=== PATIENT | female | born 1940 | race Caucasian/White ===

== ENCOUNTER 2018-03-20 20:10 | Emergency (ER) | payer MEDICARE, BC ==
[~2018-03-20] VITALS: Ht 162.6 cm; Wt 57.6 kg
[~2018-03-20 20:10] MED LIST: ASPI81EC PO; DOXY100 PO; FISH1000 PO
[2018-03-20] MEDS ORDERED: ATOR40TA PO (20:17)
[2018-03-20 21:27] LABS: BASOPHILS ABSOLUTE AUTO 0.03 K/mm3 (0.00-0.23); BASOPHILS PERCENT AUTO 0 % (0-2); EOSINOPHILS ABSOLUTE AUTO 0.12 K/mm3 (0.00-0.68); EOSINOPHILS PERCENT AUTO 1 % (0-6); Hematocrit 39.5 % (33.0-51.0); Hemoglobin 13.2 g/dL (11.5-16.0); IMMATURE GRAN ABSOLUTE AUTO 0.02 K/mm3 (0.00-0.10); IMMATURE GRAN PERCENT AUTO 0 % (0-1); LYMPHOCYTES ABSOLUTE AUTO 0.94 K/mm3 (0.84-5.20); LYMPHOCYTES PERCENT AUTO 11 % (21-46); MONOCYTES ABSOLUTE AUTO 0.69 K/mm3 (0.16-1.47); MONOCYTES PERCENT AUTO 8 % (4-13); Mean Corpuscular HGB 31.4 pg (26.0-34.0); Mean Corpuscular HGB Conc 33.4 g/dL (31.5-36.5); Mean Corpuscular Volume 94 fL (80-100); Mean Platelet Volume 10.4 fL (9.1-12.4); NEUTROPHILS ABSOLUTE AUTO 6.89 K/mm3 (1.96-9.15); NEUTROPHILS PERCENT AUTO 79 % (41-73); Platelet Count 187 K/mm3 (150-400); RDW Standard Deviation 41.5 fL (35.1-46.3); Red Blood Cell Count 4.21 M/mm3 (3.80-5.20); White Blood Cell Count 8.69 K/mm3 (4.00-11.30)
[2018-03-20 21:42] LABS: Anion Gap 6 mmol/L (6-16); Blood Urea Nitrogen 13 mg/dL (8-24); Bun/Creatinine Ratio 16.4 (12.0-20.0); CO2, Blood 26 mmol/L (21-32); Calcium, Blood 8.8 mg/dL (8.5-10.1); Chloride, Blood 104 mmol/L (98-108); Creatinine, Blood 0.79 mg/dL (0.40-1.00); Glomerular Filtration Rate >60 (60-); Glucose, Blood 110 mg/dL (70-99); Potassium, Blood 3.8 mmol/L (3.5-5.5); Sodium, Blood 136 mmol/L (136-145)
[2018-03-20 21:58] LABS: Influenza A Negative (NEGATIVE); Influenza B Negative (NEGATIVE)
[2018-03-20] MEDS ORDERED: Zithromax250 MG PO (22:37)
[2018-03-20] MEDS ORDERED: Mucinex600 MG PO (22:38)
== END 2018-03-20 22:49 | disposition home or self-care (01) ==
LOC: ER 20:10
PROVIDERS: Emergency Medicine
DX: J40 Bronchitis, not specified as acute or chronic (principal); F17.210 Nicotine dependence, cigarettes, uncomplicated
CPT/HCPCS: 36415; 71046; 80048; 85025; 87804; 99284-25

== ENCOUNTER → 2020-03-11 | Outpatient (CLI) | payer MEDICARE, BC ==
[~2020-03-11] MED LIST changes: +ATOR40TA PO; +Mucinex600 MG PO; +Zithromax250 MG PO
== END | disposition home or self-care (01) ==
LOC: LAB 08:11
DX: R10.32 Left lower quadrant pain (principal)
CPT/HCPCS: 87086

== ENCOUNTER 2020-08-04 09:05 | Emergency (ER) | payer MEDICARE, BC ==
[~2020-08-04] VITALS: Ht 162.6 cm; Wt 56.7 kg
[2020-08-04 11:04] LABS: BASOPHILS ABSOLUTE AUTO 0.05 K/mm3 (0.00-0.23); BASOPHILS PERCENT AUTO 1 % (0-2); EOSINOPHILS ABSOLUTE AUTO 0.06 K/mm3 (0.00-0.68); EOSINOPHILS PERCENT AUTO 1 % (0-6); Hematocrit 39.6 % (33.0-51.0); Hemoglobin 13.4 g/dL (11.5-16.0); IMMATURE GRAN ABSOLUTE AUTO 0.03 K/mm3 (0.00-0.10); IMMATURE GRAN PERCENT AUTO 0 % (0-1); LYMPHOCYTES ABSOLUTE AUTO 2.88 K/mm3 (0.84-5.20); LYMPHOCYTES PERCENT AUTO 27 % (21-46); MONOCYTES ABSOLUTE AUTO 1.09 K/mm3 (0.16-1.47); MONOCYTES PERCENT AUTO 10 % (4-13); Mean Corpuscular HGB 31.3 pg (26.0-34.0); Mean Corpuscular HGB Conc 33.8 g/dL (31.5-36.5); Mean Corpuscular Volume 93 fL (80-100); Mean Platelet Volume 10.2 fL (9.1-12.4); NEUTROPHILS ABSOLUTE AUTO 6.61 K/mm3 (1.96-9.15); NEUTROPHILS PERCENT AUTO 62 % (41-73); Platelet Count 234 K/mm3 (150-400); RDW Coefficient Variation 11.9 % (11.7-14.2); Red Blood Cell Count 4.28 M/mm3 (3.80-5.20); White Blood Cell Count 10.72 K/mm3 (4.00-11.30)
[2020-08-04 11:30] LABS: Alanine Aminotransfer (ALT/SGP 27 U/L (12-78); Albumin, Blood 3.9 g/dL (3.4-5.0); Albumin/Globulin Ratio 1.3 (0.8-1.8); Alk Phos 63 U/L (50-136); Anion Gap 4 mmol/L (6-16); Aspartate Aminotrans (AST/SGOT 15 U/L (12-37); Bilirubin, Total 0.3 mg/dL (0.1-1.0); Blood Urea Nitrogen 19 mg/dL (8-24); Bun/Creatinine Ratio 25.6 (12.0-20.0); CO2, Blood 29 mmol/L (21-32); CPK Creatine Kinase 83 U/L (26-193); Chloride, Blood 106 mmol/L (98-108); Creatine Kinase MB 2.8 ng/mL (0.0-3.6); Creatine Kinase MB Index 3.4 (0.0-4.0); Creatinine, Blood 0.74 mg/dL (0.40-1.00); Glomerular Filtration Rate >60 (60-); Glucose, Blood 104 mg/dL (70-99); Magnesium, Blood 2.3 mg/dL (1.6-2.4); Potassium, Blood 3.5 mmol/L (3.5-5.5); Sodium, Blood 139 mmol/L (136-145); Total Protein, Blood 6.9 g/dL (6.4-8.2); Troponin I <0.015 ng/mL (0.000-0.040)
[2020-08-04 11:46] LABS: Source, Urine Catheter
[2020-08-04 11:50] LABS: Bilirubin, Urine Neg (Neg); Blood, Urine 1+ (Neg); Glucose Qualitative, Urine Neg (Neg); Ketones, Urine Neg (Neg); Leukocyte Esterase, Urine 2+ (Neg); Nitrite, Urine Neg (Neg); Protein, Urine Neg (Neg); Specific Gravity, Urine 1.015 (1.003-1.022); Urobilinogen, Urine NORM (Normal)
[2020-08-04 12:04] LABS: U Amphetamine Screen Not Detected; U Barbituate Screen Not Detected; U Benzodiazapine Screen Not Detected; U Buprenorphine Screen Not Detected; U Cannabinoids Screen Not Detected; U Cocaine Screen Not Detected; U Methadone Screen Not Detected; U Methamphetamine Screen Not Detected; U Opiates Screen Not Detected; U Oxycodone Screen Not Detected; U Phencyclidine Screen Not Detected; U Propoxyphene Screen Not Detected
[2020-08-04 12:11] LABS: Appearance, Urine Clear (Clear); Color, Urine Yellow (P-Yellow)
[2020-08-04 12:12] LABS: Bacteria Few /hpf; Red Blood Cells, Urine 0-2 /hpf (0-2); Squamous Epithelial Cells Rare /hpf (Few)
== END 2020-08-04 13:00 | disposition home or self-care (01) ==
LOC: ER 09:05
PROVIDERS: Emergency Medicine
DX: R53.1 Weakness (principal); R03.0 Elevated blood-pressure reading, without diagnosis of hypertension; Z79.82 Long term (current) use of aspirin; Z79.899 Other long term (current) drug therapy
CPT/HCPCS: 36415; 80053; 81001; 82550; 82553; 83735; 83880; 84443; 84484; 85025; 87086; 93005; 93010; 99283-25

== ENCOUNTER → 2020-08-27 | Outpatient (CLI) | payer MEDICARE, BC | END | disposition home or self-care (01) | LOC: LAB 08:14 → LAB SHORT 08:14 | DX: L28.0 Lichen simplex chronicus (principal) | CPT/HCPCS: 88305 ==

== ENCOUNTER 2021-03-18 08:21 | Emergency (ER) | payer MEDICARE, BC ==
[~2021-03-18] VITALS: Ht 162.6 cm; Wt 55.8 kg
[~2021-03-18 08:21] MED LIST changes: +FISH OIL 1,2001 EAC7 PO; -FISH1000 PO
[2021-03-18 09:49] LABS: Source, Urine Clean Catch
[2021-03-18 10:12] LABS: BASOPHILS ABSOLUTE AUTO 0.06 K/mm3 (0.00-0.23); BASOPHILS PERCENT AUTO 1 % (0-2); EOSINOPHILS ABSOLUTE AUTO 0.15 K/mm3 (0.00-0.68); EOSINOPHILS PERCENT AUTO 2 % (0-6); Hematocrit 41.7 % (33.0-51.0); Hemoglobin 14.3 g/dL (11.5-16.0); IMMATURE GRAN ABSOLUTE AUTO 0.01 K/mm3 (0.00-0.10); IMMATURE GRAN PERCENT AUTO 0 % (0-1); LYMPHOCYTES ABSOLUTE AUTO 1.28 K/mm3 (0.84-5.20); LYMPHOCYTES PERCENT AUTO 19 % (21-46); MONOCYTES ABSOLUTE AUTO 0.37 K/mm3 (0.16-1.47); MONOCYTES PERCENT AUTO 6 % (4-13); Mean Corpuscular HGB 31.4 pg (26.0-34.0); Mean Corpuscular HGB Conc 34.3 g/dL (31.5-36.5); Mean Corpuscular Volume 91 fL (80-100); Mean Platelet Volume 10.9 fL (9.1-12.4); NEUTROPHILS ABSOLUTE AUTO 4.87 K/mm3 (1.96-9.15); NEUTROPHILS PERCENT AUTO 72 % (41-73); Platelet Count 238 K/mm3 (150-400); RDW Coefficient Variation 11.9 % (11.7-14.2); Red Blood Cell Count 4.56 M/mm3 (3.80-5.20); White Blood Cell Count 6.74 K/mm3 (4.00-11.30)
[2021-03-18 10:13] LABS: Anion Gap 5 mmol/L (6-16); Blood Urea Nitrogen 13 mg/dL (8-24); CO2, Blood 26 mmol/L (21-32); Calcium, Blood 9.1 mg/dL (8.5-10.1); Chloride, Blood 110 mmol/L (98-108); Creatinine, Blood 0.68 mg/dL (0.40-1.00); Glomerular Filtration Rate >60 (60-); Glucose, Blood 146 mg/dL (70-99); Potassium, Blood 4.1 mmol/L (3.5-5.5); Sodium, Blood 141 mmol/L (136-145)
[2021-03-18 10:18] LABS: Appearance, Urine Clear (Clear); Bilirubin, Urine Neg (Neg); Blood, Urine 3+ (Neg); Color, Urine Yellow (P-Yellow); Glucose Qualitative, Urine Neg (Neg); Ketones, Urine Neg (Neg); Leukocyte Esterase, Urine 3+ (Neg); Nitrite, Urine Neg (Neg); Protein, Urine 2+ (Neg); Specific Gravity, Urine 1.025 (1.003-1.022); Urobilinogen, Urine 1+ (Normal)
[2021-03-18] MEDS ORDERED: Vitamin D1000 UNI1 PO (10:42)
[2021-03-18 10:53] LABS: Prothrombin Time Results 10.5 Sec (9.7-11.5)
[2021-03-18 10:56] LABS: Bacteria Few /hpf; Mucus Light (0-Heavy); Squamous Epithelial Cells Few /hpf (Few)
[2021-03-18] MEDS ORDERED: NITR100CA PO (11:45)
[2021-12-12] MEDS ORDERED: AMLO5 PO (14:31)
[2021-12-15] MEDS ORDERED: TICA90TA PO (11:45)
== END 2021-03-18 12:23 | disposition home or self-care (01) ==
LOC: ER 08:21
PROVIDERS: Physician Assistant; Student in an Organized Health Care Education/Training Program
DX: N30.90 Cystitis, unspecified without hematuria (principal); Z79.899 Other long term (current) drug therapy; Z79.82 Long term (current) use of aspirin; Z87.891 Personal history of nicotine dependence
CPT/HCPCS: 36415; 80048; 81001; 85025; 85610; 85730; 86850; 86900; 86901; 87086; 99283; A9270

== ENCOUNTER → 2021-04-17 | Outpatient (CLI) | payer MEDICARE, BC ==
[~2021-04-17] MED LIST changes: -FISH OIL 1,2001 EAC7 PO; +FISH1000 PO; +NITR100CA PO; +Vitamin D1000 UNI1 PO
== END | disposition home or self-care (01) ==
LOC: LAB SHORT 07:24 → LAB 07:24
DX: L60.2 Onychogryphosis (principal); B35.1 Tinea unguium
CPT/HCPCS: 88305; 88312

== ENCOUNTER 2021-08-02 23:41 | Emergency (ER) | payer MEDICARE, BC ==
[~2021-08-02] VITALS: Ht 162.6 cm; Wt 55.3 kg
[2021-08-03] MEDS ORDERED: ACET500 PO (00:38)
== END 2021-08-03 00:43 | disposition home or self-care (01) ==
LOC: ER 23:41
DX: I73.9 Peripheral vascular disease, unspecified (principal); Z79.899 Other long term (current) drug therapy
CPT/HCPCS: A9270

== ENCOUNTER 2021-09-18 06:21 | Day surgery (SDC) | payer MEDICARE, BC ==
[~2021-09-18] VITALS: Ht 162.6 cm; Wt 55.8 kg
[~2021-09-18 06:21] MED LIST changes: +ACET500 PO; +FISH OIL 1,2001 EAC7 PO; -FISH1000 PO
[2021-09-18] MEDS ORDERED: ACET500 PO (07:12)
[2021-09-18] MEDS ORDERED: GLUCHON PO (07:12)
[2021-09-18] MEDS ORDERED: ASPI81CH PO (07:13)
--- NOTE | 2021-09-18 11:05 | NUR ---
PT TO RECOVERY ROOM POST PROCEDURE. PT AWAKE AND CONVERSING APPROPRIATELY; DENIES PAIN POST PROCEDURE. MONITOR SB 50'S, B/P 110/41, AFEBRILE, SPO2 97% RA. L GROIN NO SWELLING/HEMATOMA, TEGADERM DRSG INTACT; LLE PULSES 1+ X 2, RLE: DP ABS, PT DOP (UNCHANGED FROM PRE). L RADIAL NO SWELLING/HEMATOMA, TR BAND IN PLACE, POSITIVE PLEUTH POST TR BAND PLACEMENT. PT ASSISTED USING BEDPAN, VOIDED QS, SITE UNCHANGED WITH ACTIVITY.
--- NOTE | 2021-09-18 12:00 | NUR ---
PT'S L RADIAL SITE SLIGHT OOZE, NO SWELLING/HEMATOMA AT SITE; 2 CC AIR INSTILLED IN TR BAND; GRIFFIN ABEBE UNCHANGED.
--- NOTE | 2021-09-18 12:37 | NUR ---
PATIENT HAS VASOVAGEL EPISODE AND PATIETN WAS GIVEN 1 AMP OF ATROPPINE. 38 HR WAS NOTED ON THE MONITOR. NURSES AT THE BEDSIDE. PATINE WAS LETHARGIC BUT AWAKE THE WHOLE TIME. DR. VIERA CALLED TO THE BEDSIDE. DR PITTMAN WAS SCRUBBED IN A PROCEDURE. STAT LAB ([facility]&H) SENT, GLUCOSE PERFORMED AT THE BEDSIDE 138. STAT EKG PERFORMED AND REVEIWED BY . REVEIWED BY DR. VIERA. NO CHEST PAIN NOTED FROM THE PATIENT. SALINE BOLUS STARTED ORDERED BY DR. VIERA. CT OF THE ABDOMEN ORDERED BY DR. VIERA. PATIENT COMPLAINS OF BACK PAIN ONLY.
[2021-09-18 12:52] LABS: Hemoglobin 11.7 g/dL (11.5-16.0)
--- NOTE | 2021-09-18 13:07 | NUR ---
PT TO CT WITH RN, TOLERATED WELL, RETURNED TO ROOM. PT IN SR 70'S, B/P 131/47, RECEIVING FLUIDS AT 200/HR. PT REPORTS SHE CONTINUES TO HAVE L BACK DISCOMFORT, BUT IMPROVED 05/29. PT'S L GROIN AND L RADIAL SITE REMAIN UNCHANGED.
--- NOTE | 2021-09-18 13:25 | NUR ---
DR PITTMAN IN TO DISCUSS PROCEDURE AND CT RESULTS.
--- NOTE | 2021-09-18 14:17 | NUR ---
Telephone report received from Forest Paige Anticipate arrival to PCU 7 soon.
--- NOTE | 2021-09-18 14:34 | NUR ---
REPORT GIVEN TO MARY STONE, ALL QUESTIONS ANSWERED. PT TRANSFERRED TO PCU 7 VIA [facility].
--- NOTE | 2021-09-18 15:49 | NUR ---
Pt arrived from [facility], alert, oriented and conversant. She was asking for food and drink. Vital signs stable, normal sinus rhythm per telemetry monitoring. Left groin site is without bleeding, hemotoma or swelling. Tegederm dressing is clean, dry and intact. Distal pulses on the left foot are doppled, absent on the right, which corresponds with the report which Forest Paige RN gave from [facility]. TR band is in place on the left wrist, and at this time is fully deflated. No evidence of bleeding, hematoma or swelling. The IV in the left AC has a good blood return, and flushes easily. Noted some swelling in the left elbow upon arrival from the [facility]. The pt was able to eat some finger food, and drink some liquids. She is saying now that she has indigestion, and takes TUMS at home for that. New order from Dr. Rios for TUMS received.
--- NOTE | 2021-09-18 16:18 | NUR ---
Medicated for indigestion.
--- NOTE | 2021-09-18 17:14 | NUR ---
Left wrist TR band was removed. Site is bruised, but without bleeding, swelling or evidence of hematoma. Site cleased with chlorehexidine swab, dried and covered with sterile clear tegederm. Pt denies pain in her left arm, and left groin site, which also remains unchanged from previous assessments. Assisted to bedpan to void.
--- NOTE | 2021-09-19 06:49 | NUR ---
NOC SHIFT SUMMARY PT SLEPT WELL OVERNIGHT, L RADIAL SITE WITH SOME OOZING THIS AM, NO HEMATOMA OR SIGNIFICANT BLEEDING. ORIENTED X4, VSS PER PT TREND. PT/DP PULSES DOPPLERABLE ON L FOOT, PT DOPPLERABLE R BUT DP ABSENT. CAP REFILL WNL. L GROIN SITE CDI. PT AMBULATED SBA WITH NO DIZZINESS, HYPOTENSION, OR EPISODES OF BRADYCARDIA. WILL CONTINUE TO MONITOR AND PASS ON TO DAY RN
--- NOTE | 2021-09-19 08:08 | NUR ---
PT. CARE PT. BRUSHED HER TEETH IND W/ SET UP HELP ONLY, DID NOT HAVE TO USE THE RESTROOM AT THIS TIME. FRESH ICE WATER AND COFFEE BROUGHT IN. EPT. IS SITTING IN HIGH FOWLERS WAITING FOR BREAKFAST. NO NEEDS AT THIS TIME. CALL LIGHT IN REACH.
--- NOTE | 2021-09-19 08:21 | NUR ---
PT. CARE/INTAKE/OUTPUT 900CC OF DRINKS BROUGHT INTO PT. ANS 800 OUTPUT FOR URINE
--- NOTE | 2021-09-19 10:05 | NUR ---
0945: DR PITTMAN CALLED, OK TO DISCHARGE PT. 0955: DISCHARGE TEACHING REVIEWED, PT HAS FOLLOW UP APPOINTMENT SCHEDULED, IV REMOVED, SITE WNL, CATHETER INTACT. L RADIAL AND FEMORAL SITE WNL, NO BLEEDING, SWELLING OR HEMATOMA NOTED. PULSES PALPABLE T/O. DISCHARGE MEDICATION LIST REVIEWED WITH PT, NO CHANGES NOTED, PT VERBALIZES UNDERSTANDING OF DISCHARGE TEACHING AND MED LIST, NO QUESTIONS OR CONCERNS, NO FURTHER DISCHARGE NEEDS IDENTIFIED. PT ABLE TO AMBULATE WO ASSISTANCE, GAIT STEADY, VSS. 1010: PT DISCHARGED HOME WITH HER FRIEND. ALL BELONGINGS SENT WITH PT.
== END 2021-09-19 10:36 | disposition home or self-care (01) ==
LOC: MHTC 06:21 → PCU 14:43 → MHTC 09-19 10:36
PROVIDERS: Radiology Diagnostic Radiology
DX: I70.222 Atherosclerosis of native arteries of extremities with rest pain, left leg (principal); I70.211 Atherosclerosis of native arteries of extremities with intermittent claudication, right leg; K57.30 Diverticulosis of large intestine without perforation or abscess without bleeding; Z87.891 Personal history of nicotine dependence; Z88.8 Allergy status to other drugs, medicaments and biological substances; Z88.6 Allergy status to analgesic agent; Z79.82 Long term (current) use of aspirin
CPT/HCPCS: 37220; 74176; 75625; 75716; 76937; 82947; 85014; 85018; 85347; 93005; 93010; 99152; 99153; A9270; C1725; C1769; C1887; C1894; J0461; J1644; J2250; J3010; J7030; J7040; Q9967

== ENCOUNTER 2021-12-02 06:56 | Day surgery (SDC) | payer MEDICARE, BC ==
[~2021-12-02] VITALS: Ht 162.6 cm; Wt 56.0 kg
[~2021-12-02 06:56] MED LIST changes: +ASPI81CH PO; +GLUCHON PO
--- NOTE | 2021-12-02 11:41 | NUR ---
PT AMBULATES TO RESTROOM AND BACK WITHOUT DIFF. R RADIAL TR BAND IN PLACE. NO BLEEDING OR HEMATOMA NOTED. VSS. NADN.
--- NOTE | 2021-12-02 11:45 | NUR ---
PT TR BAND FULLY DEFLATED. NO BLEEDING OR HEMATOMA NOTED. VSS. NADN. PT RESTING COMFORTABLY.
--- NOTE | 2021-12-02 12:50 | NUR ---
PT IV DC'D. CATH INTACT. PRESSURE DSG APPLIED. NO BLEEDING NOTED. VSS. NADN. PT TR BAND REMOVED, DOT DRESSING/SPLINT/SLING APPLIED. NO BLEEDING OR HEMATOMA NOTED. PT AND DAUGHTER VERBALIZES UNDERSTANDING WRITTEN INSTRUCTIONS. PT DC TO HOME VIA WC
== END 2021-12-02 13:00 | disposition home or self-care (01) ==
LOC: MHTC 06:56
DX: I25.10 Atherosclerotic heart disease of native coronary artery without angina pectoris (principal); I11.9 Hypertensive heart disease without heart failure; I07.1 Rheumatic tricuspid insufficiency; E78.5 Hyperlipidemia, unspecified; Z88.6 Allergy status to analgesic agent; Z88.8 Allergy status to other drugs, medicaments and biological substances; Z87.891 Personal history of nicotine dependence
CPT/HCPCS: 76937; 85347; 92978; 93454; 99152; 99153; A9270; C1753; C1769; C1887; C1894; J0461; J1644; J2250; J3010; J7030; J7040; Q9967

== ENCOUNTER 2022-01-20 09:07 | Day surgery (SDC) | payer MEDICARE, BC ==
[~2022-01-20] VITALS: Ht 121.9 cm; Wt 56.0 kg
[~2022-01-20 09:07] MED LIST changes: +AMLO5 PO; +TICA90TA PO
--- NOTE | 2022-01-20 13:40 | NUR ---
PT TO RECOVERY ROOM POST PROCEDURE. PT DROWSY, BUT EASILY ROUSABLE AND ANSWERING QUESTIONS APPROPRIATELY. PT REPORTS DISCOMFORT IN R LEG POST PROCEDURE. MONITOR SR 60'S, B/P 150/53, AFEBRILE, SPO2 100% RA. L GROIN NO SWELLING/HEMATOMA, ALEENA AND TEGADERM DRSG INTACT; LLE PULSES DP 1+, PT DOP. R PT SITE NO SWELLING/HEMATOMA, SLIGHT OOZING AT SITE, MANUAL PRESSURE HELD AND NEW ALEENA AND TEGADERM DRSG PLACED.
--- NOTE | 2022-01-20 14:56 | NUR ---
DR IPTTMAN INTO EVALUATE PT.
--- NOTE | 2022-01-20 15:15 | NUR ---
PT'S PT SITE CONTINUED TO HAVE SLOW OOZE, MANUAL PRESSURE HELD FOR 7 MIN WITH HEMOSTASIS; NEW ALEENA AND TEGADERM DRSG PLACED.
--- NOTE | 2022-01-20 15:23 | NUR ---
PT'S SISTER JASBIR UPDATED BY TELEPHONE WITH PT CONSENT.
--- NOTE | 2022-01-20 16:10 | NUR ---
PT AMB TO BATHROOM, GAIT STEADY; SITES UNCHANGED.
--- NOTE | 2022-01-20 16:25 | NUR ---
PT DRESSED SELF WITHOUT ISSUE, SITES UNCHANGED; IV REMOVED-CANNULA INTACT.
--- NOTE | 2022-01-20 16:44 | NUR ---
PT RECEIVED DISCHARGE INSTRUCTIONS, MED LIST AND AFTER CARE INSTRUCTIONS; VERBALIZED GOOD UNDERSTANDING. PT LEFT FACILITY VIA W/C, CONDITION STABLE. PT BEING TRANSPORTED HOME VIA [facility].
== END 2022-01-20 16:45 | disposition home or self-care (01) ==
LOC: MHTC 09:07
DX: I70.213 Atherosclerosis of native arteries of extremities with intermittent claudication, bilateral legs (principal); I70.229 Atherosclerosis of native arteries of extremities with rest pain, unspecified extremity; I25.10 Atherosclerotic heart disease of native coronary artery without angina pectoris; I10 Essential (primary) hypertension; M19.90 Unspecified osteoarthritis, unspecified site; E78.00 Pure hypercholesterolemia, unspecified; I07.1 Rheumatic tricuspid insufficiency; R00.1 Bradycardia, unspecified; Z95.5 Presence of coronary angioplasty implant and graft; Z79.02 Long term (current) use of antithrombotics/antiplatelets; Z79.82 Long term (current) use of aspirin
CPT/HCPCS: 75625; 75716; 76937; 99152; 99153; C1725; C1769; C1887; C1894; C2623; C9764; J1644; J2250; J3010; J7030; J7040; Q9967

== ENCOUNTER 2025-02-20 21:14 | Emergency (ER) | payer MEDICARE, BC ==
[~2025-02-20] VITALS: Ht 162.6 cm; Wt 55.3 kg
[2025-02-20 23:20] LABS: BASOPHILS ABSOLUTE AUTO 0.08 K/mm3 (0.00-0.23); BASOPHILS PERCENT AUTO 1 % (0-2); EOSINOPHILS ABSOLUTE AUTO 0.19 K/mm3 (0.00-0.68); EOSINOPHILS PERCENT AUTO 2 % (0-6); Hematocrit 39.5 % (33.0-51.0); Hemoglobin 13.3 g/dL (11.5-16.0); IMMATURE GRAN ABSOLUTE AUTO 0.03 K/mm3 (0.00-0.10); IMMATURE GRAN PERCENT AUTO 0 % (0-1); LYMPHOCYTES ABSOLUTE AUTO 1.63 K/mm3 (0.84-5.20); LYMPHOCYTES PERCENT AUTO 19 % (21-46); MONOCYTES ABSOLUTE AUTO 0.77 K/mm3 (0.16-1.47); MONOCYTES PERCENT AUTO 9 % (4-13); Mean Corpuscular HGB Conc 33.7 g/dL (31.5-36.5); Mean Corpuscular Volume 94 fL (80-100); NEUTROPHILS ABSOLUTE AUTO 6.12 K/mm3 (1.96-9.15); NEUTROPHILS PERCENT AUTO 69 % (41-73); NRBC ABSOLUTE 0.00 K/mm3 (0.00-0.02); NRBC Auto 0.0 /100 WBC (0.0-0.2); Platelet Count 212 K/mm3 (150-400); RDW Coefficient Variation 11.9 % (11.7-14.2); RDW Standard Deviation 41.1 fL (35.1-46.3)
[2025-02-20 23:24] LABS: Alanine Aminotransfer (ALT/SGP 32.0 U/L (12-78); Albumin, Blood 4.1 g/dL (3.4-5.0); Albumin/Globulin Ratio 1.2 (0.8-1.8); Anion Gap 10.0 mmol/L (3-11); Aspartate Aminotrans (AST/SGOT 28.0 U/L (12-37); Bilirubin, Total 0.2 mg/dL (0.1-1.0); Blood Urea Nitrogen 17.0 mg/dL (8-24); CO2, Blood 25.0 mmol/L (21-32); Calcium, Blood 9.3 mg/dL (8.5-10.1); Chloride, Blood 106.0 mmol/L (98-108); Creatinine, Blood 0.65 mg/dL (0.40-1.00); Globulin, Blood 3.3 g/dL (2.2-4.0); Glucose, Blood 113.0 mg/dL (70-99); Potassium, Blood 3.9 mmol/L (3.5-5.5); Sodium, Blood 137.0 mmol/L (136-145); Total Protein, Blood 7.4 g/dL (6.4-8.2)
[2025-02-20 23:51] VITALS: BP 157/69
== END 2025-02-20 23:52 | disposition home or self-care (01) ==
LOC: ER 21:14
PROVIDERS: Student in an Organized Health Care Education/Training Program
DX: I10 Essential (primary) hypertension (principal); E78.00 Pure hypercholesterolemia, unspecified; E78.5 Hyperlipidemia, unspecified; Z79.82 Long term (current) use of aspirin; Z79.899 Other long term (current) drug therapy; Z88.8 Allergy status to other drugs, medicaments and biological substances; I73.9 Peripheral vascular disease, unspecified; R93.6 Abnormal findings on diagnostic imaging of limbs
CPT/HCPCS: 80053; 84484; 85025; 93005; 93010; 93922; 99284-25; A9270